=== PATIENT | female | born 1980 | race Hispanic/Latino ===

== ENCOUNTER → 2019-02-06 13:50 | Outpatient (CLI) | payer BC, SELFPAY ==
[2019-02-11 15:39] LABS: HPV APTIMA, High Risk Negative (Negative)
== END ==
PROVIDERS: Visit Provider Obstetrics & Gynecology
DX: Z12.4 Encounter for screening for malignant neoplasm of cervix (principal)
CPT/HCPCS: 87624; 88175; G0145

== ENCOUNTER → 2020-01-08 10:19 | Outpatient (CLI) | payer BC, SELFPAY ==
[2020-01-08 11:29] LABS: EXAGEN MAILED SPECIMEN
[2020-01-08 12:36] LABS: Absolute Lymphocyte Count 1.27 X10^3/uL (0.83-4.51); Absolute Neutrophil Count 2.5 X10^3/uL (2.0-7.7); Basophil# 0.02 X10^3/uL; Basophil% 0.5 % (0-1); Eosinophil# 0.02 X10^3/uL; Eosinophils% 0.5 % (0-5); Hematocrit 42.3 % (37-47); Hemoglobin 13.6 g/dL (12.0-15.0); Lymphocyte # 1.27 X10^3/ul (4.0); Lymphocyte % 30.9 % (19-41); Mean Corp Hgb Conc 32.2 g/dL (32-36); Mean Corpuscular Hgb 29.8 pg (27.0-32.0); Mean Corpuscular Volume 92.8 fL (81-99); Mean Platelet Vol. 10.3 fl (6.2-12.0); Monocyte# 0.28 X10^3/uL; Monocyte% 6.8 % (0-10); NRBC Flagged by Analyzer 0 % (0-5); Neutrophil # 2.51 X10^3/uL (2.7-7.7); Neutrophil % 61.1 % (47-70); Platelet Count 334 K/mm3 (150-450); RBC Distribution Width CV 11.7 % (11.6-14.6); RBC Distribution Width SD 39.7 fl (35.1-43.9); Red Blood Count 4.56 M/mm3 (4.2-5.4); White Blood Count 4.1 K/mm3 (4.4-11.0)
[2020-01-08 12:38] LABS: Color, Urine Yellow (Yellow); Glucose, Dipstick Normal (Normal); Ketone-Dipstick 5 mg/dl (Negative); Leukocyte Esterase-Dipstick Negative /ul (Negative); Nitrite-Dipstick Negative (Negative); Occult Blood-Urine 250 /ul (Negative); Protein-Dipstick Negative (Negative); Specific Gravity, Urine 1.025 (1.002-1.030); Urine Bilirubin Dipstick Negative (Negative); Urine Clarity Sl. Cloudy (Clear); Urine Urobilinogen Normal (Normal)
[2020-01-08 12:46] LABS: Prothrombin Time (Protime)PT. 12.7 SECONDS (11.7-14.9)
[2020-01-08 12:59] LABS: ALB/GLOB Ratio 1.1 RATIO (0.9-2.4); AST(SGOT) 16 U/L (15-37); Alanine Aminotransfer ALT/SGPT 24 U/L (13-56); Albumin, Serum 4.2 g/dL (3.2-5.0); Alkaline Phosphatase 82 U/L (45-117); Anion Gap 5 (5-15); BUN 24 mg/dL (7-18); BUN/Creat Ratio 43.3 RATIO (10-20); Calcium,Total 9.1 mg/dL (8.5-10.1); Chloride 102 mmol/L (98-107); Creatinine, Serum 0.55 mg/dL (0.55-1.02); EST Glomerular Filtration Rate 128 mL/min (>60); Est Glom Filt Rate - Afr Amer 155 mL/min (>60); Globulin 3.8 g/dL (2.2-4.2); Glucose 89 mg/dL (74-106); Potassium 3.7 mmol/L (3.5-5.1); Sodium Level 136 mmol/L (136-145)
[2020-01-08 13:15] LABS: Protein, Urine (Random) 24.7 mg/dL (<11.9); Protein:Creat Ratio 129 mg/g CRE (0-200)
[2020-01-08 13:35] LABS: Hepatitis B Surface Antibody Reactive; Hepatitis B Surface Antigen Non-Reactive (Nonreactive); Hepatitis C Antibody Non-Reactive (Nonreactive)
[2020-01-10 20:07] LABS: Dilute Prothrombin Time (dPT) 39.6 sec (0.0-55.0); Dilute Russell Viper Venom 34.2 sec (0.0-47.0); Hexagonal Phase Phospholipid 9 sec (0-11); PTT-LA 37.8 sec (0.0-51.9); Thrombin Time 17.6 sec (0.0-23.0); dPT Confirm Ratio 1.12 Ratio (0.00-1.40)
[2020-01-10 21:53] LABS: Hepatitis B Core AB IgM Negative (Negative); Interpretation Comment: (.)
== END ==
PROVIDERS: PCP Family Medicine; Referring Provider Internal Medicine Rheumatology; Visit Provider Internal Medicine Rheumatology
DX: M06.4 Inflammatory polyarthropathy (principal); R76.8 Other specified abnormal immunological findings in serum; E03.9 Hypothyroidism, unspecified; E78.5 Hyperlipidemia, unspecified; G90.1 Familial dysautonomia [Riley-Day]; F41.9 Anxiety disorder, unspecified
CPT/HCPCS: 36415; 80053; 81002; 82570; 84156; 85025; 85598; 85610; 86705; 86706; 86803; 87340

== ENCOUNTER → 2020-02-16 | Outpatient (CLI) | payer BC, SELFPAY | END | disposition home or self-care (01) | LOC: LABSPEC 02-19 16:15 | PROVIDERS: PCP Family Medicine; Visit Provider Obstetrics & Gynecology | DX: N76.0 Acute vaginitis (principal) ==

== ENCOUNTER → 2020-04-11 09:12 | Outpatient (CLI) | payer BC, SELFPAY ==
[2020-04-11 10:03] LABS: Absolute Lymphocyte Count 1.21 X10^3/uL (0.83-4.51); Absolute Neutrophil Count 1.2 X10^3/uL (2.0-7.7); Basophil# 0.02 X10^3/uL; Basophil% 0.7 % (0-1); Eosinophil# 0.06 X10^3/uL; Eosinophils% 2.2 % (0-5); Hematocrit 38.9 % (37-47); Hemoglobin 12.3 g/dL (12.0-15.0); Lymphocyte # 1.21 X10^3/ul (4.0); Mean Corp Hgb Conc 31.6 g/dL (32-36); Mean Corpuscular Hgb 29.8 pg (27.0-32.0); Mean Corpuscular Volume 94.2 fL (81-99); Mean Platelet Vol. 10.1 fl (6.2-12.0); Monocyte# 0.27 X10^3/uL; Monocyte% 9.8 % (0-10); NRBC Flagged by Analyzer 0 % (0-5); Neutrophil # 1.18 X10^3/uL (2.7-7.7); Neutrophil % 42.9 % (47-70); Platelet Count 269 K/mm3 (150-450); RBC Distribution Width CV 11.9 % (11.6-14.6); RBC Distribution Width SD 41.9 fl (35.1-43.9); Red Blood Count 4.13 M/mm3 (4.2-5.4); White Blood Count 2.8 K/mm3 (4.4-11.0)
[2020-04-11 10:41] LABS: ALB/GLOB Ratio 1.2 RATIO (0.9-2.4); AST(SGOT) 13 U/L (15-37); Alanine Aminotransfer ALT/SGPT 22 U/L (13-56); Albumin, Serum 3.8 g/dL (3.2-5.0); Alkaline Phosphatase 63 U/L (45-117); Anion Gap 2 (5-15); BUN 18 mg/dL (7-18); BUN/Creat Ratio 30.7 RATIO (10-20); Calcium,Total 8.8 mg/dL (8.5-10.1); Chloride 105 mmol/L (98-107); Creatinine, Serum 0.59 mg/dL (0.55-1.02); EST Glomerular Filtration Rate 119 mL/min (>60); Est Glom Filt Rate - Afr Amer 144 mL/min (>60); Globulin 3.2 g/dL (2.2-4.2); Glucose 79 mg/dL (74-106); Potassium 3.7 mmol/L (3.5-5.1); Sodium Level 141 mmol/L (136-145)
== END ==
PROVIDERS: PCP Family Medicine; Referring Provider Internal Medicine Rheumatology; Visit Provider Internal Medicine Rheumatology
DX: M06.4 Inflammatory polyarthropathy (principal); R76.8 Other specified abnormal immunological findings in serum; E03.9 Hypothyroidism, unspecified; E78.5 Hyperlipidemia, unspecified; G90.1 Familial dysautonomia [Riley-Day]; F41.9 Anxiety disorder, unspecified
CPT/HCPCS: 36415; 80053; 85025

== ENCOUNTER → 2020-05-09 09:01 | Outpatient (CLI) | payer BC, SELFPAY ==
[2020-05-09 09:46] LABS: Absolute Neutrophil Count 1.5 X10^3/uL (2.0-7.7); Basophil# 0.03 X10^3/uL; Basophil% 0.9 % (0-1); Eosinophil# 0.06 X10^3/uL; Eosinophils% 1.9 % (0-5); Hematocrit 38.9 % (37-47); Hemoglobin 12.5 g/dL (12.0-15.0); Lymphocyte % 43.2 % (19-41); Mean Corp Hgb Conc 32.1 g/dL (32-36); Mean Corpuscular Hgb 29.9 pg (27.0-32.0); Mean Corpuscular Volume 93.1 fL (81-99); Mean Platelet Vol. 10.1 fl (6.2-12.0); Monocyte# 0.29 X10^3/uL; NRBC Flagged by Analyzer 0 % (0-5); Neutrophil # 1.46 X10^3/uL (2.7-7.7); Platelet Count 291 K/mm3 (150-450); RBC Distribution Width CV 11.8 % (11.6-14.6); RBC Distribution Width SD 40.7 fl (35.1-43.9); Red Blood Count 4.18 M/mm3 (4.2-5.4); White Blood Count 3.2 K/mm3 (4.4-11.0)
== END ==
PROVIDERS: PCP Family Medicine; Referring Provider Internal Medicine Rheumatology; Visit Provider Internal Medicine Rheumatology
DX: M06.4 Inflammatory polyarthropathy (principal); R76.8 Other specified abnormal immunological findings in serum; E03.9 Hypothyroidism, unspecified; E78.5 Hyperlipidemia, unspecified; G90.1 Familial dysautonomia [Riley-Day]; F41.9 Anxiety disorder, unspecified; Z79.899 Other long term (current) drug therapy
CPT/HCPCS: 36415; 85025

== ENCOUNTER 2020-12-02 05:03 | Emergency (ER) | payer BC, SELFPAY ==
[2020-12-02 05:05] VITALS: BP 120/80; PULSE 132; RESP 22; TEMP 36.4; O2SAT 97; BMI 20.3
--- NOTE | 2020-12-02 05:07 | EX.ED.DYSGE1 ---
HPI History of Present Illness Chief Complaint: Foreign Body Informant: patient and spouse/S.O. Narrative Narrative: Patient was evidently brushing her teeth. Somehow the toothbrush got lodged down her throat. She is more gagging and having discomfort and trouble breathing. This happened within the last probably 45 minutes. Nothing makes it better or worse. She denies any medical problems. [facility] Medical History (Updated 12/02/20 @ 05:[address] Gary Hoover MD) Depression Hypothyroidism Allergy/AdvReac Type Severity Reaction Status Date / Time Unable to Assess Allergy Verified 12/02/20 05:05 Social History Smoking Status: Former smoker ROS ROS ED ROS Narrative Initial review of systems is limited. After removal of the brush she states she felt fine and she has no symptoms at all prior to this. Constitutional Constitutional ED: Denies fever(s) ENT ENT ED: Reports other Details: See history of present illness. Respiratory/Chest Respiratory/Chest: Denies dyspnea Gastrointestinal Gastrointestinal: Denies diarrhea, nausea or vomiting Neurologic Neurologic: Denies weakness Psychiatric Psychiatric: Denies anxiety or depression EXAM Physical Exam Const Vital Signs: 12/02/20 05:05 Temperature 97.5 F L Temperature Source Temporal Pulse Rate 132 H Respiratory Rate 22 H Blood Pressure 120/80 Blood Pressure Mean 93 Pulse Ox 97 Oxygen Delivery Method Room Air Positive well nourished and well developed Constitutional Narrative: Patient comes in with her almost entire hand in her mouth. She is drooling. She is gagging. But she is moving air quite well. I listen to her lungs and they sound clear. General Appearance ED: well developed HEENT HEENT Narrative: It is initially hard to get visualization as she does not want to take her hand out. She then does take her hand and I can see the tail end her handle of a toothbrush. Using a light and Per forceps were able to pull this out without difficulty. There is no blood on the area and there is no bleeding afterwards. She has resolution of symptoms. Neck supple and No no JVD Neck Narrative: No subcu air. Chest Wall inspection of chest normal Resp clear to auscultation bilaterally Auscultation: Negative for rales, rhonchi or wheezes Cardio regular rhythm Rate: tachycardic GI normal to inspection, nondistended, normoactive bowel sounds and non-tender Palpation: soft Neuro oriented x3 Neuro Narrative: Not lethargic or sleepy. Sensorium / Orientation: alert Psych mental status grossly normal Skin no rashes or lesions noted MDM MDM MDM Narrative Medical decision making narrative: I was called emergently to bedside when she came in. We are able to visualize this. I had already asked for Per forceps. The first time I grabbed it it slipped off. We had her remove her hand again we are able to grab the tip firmly and pull it out without difficulty. Symptoms are resolved. Explained to the patient that I would like to watch her for a while to make sure she does not have any issues such as breathing problems, swelling, loss of voice bleeding or other issues. She states she was good and comfortable going. I did convince her to stay for a bit. Patient is asymptomatic. She is comfortable and swallowing well. Voice is normal. Saturations are 99%. She states she had drank wine with her sister. She had a little upset stomach. She was trying to make herself throw up. The finger did not work so she used a toothbrush and went too far. She feels fine now and wants to go. I think that is reasonable. We encouraged avoiding this in the future. Discharge Plan Triage Chief Complaint: Foreign Body ED Provider: Gary Hoover Dx/Rx/DC Orders Clinical Impression: Foreign body, swallowed Instructions: ED Swallowed Foreign Body (Adult) Primary Care Provider: Rodrigo Narayan Referrals: Rodrigo Narayan MD [Primary Care Provider] - 1-2 Days if not improving Disposition Disposition: Home, Self Care
[2020-12-02 05:51] VITALS: BP 103/75; O2SAT 98
== END 2020-12-02 05:52 | disposition home or self-care (01) ==
PROVIDERS: Emergency Provider Emergency Medicine; PCP Family Medicine
DX: T17.298A Other foreign object in pharynx causing other injury, initial encounter (principal); Z87.891 Personal history of nicotine dependence
CPT/HCPCS: 42809; 10120; 99282

== ENCOUNTER → 2021-03-29 | Outpatient (CLI) | payer BC, SELFPAY ==
[2021-04-04 17:42] LABS: HPV APTIMA, High Risk Negative (Negative)
== END | disposition home or self-care (01) ==
LOC: LABSPEC 15:48
PROVIDERS: PCP Family Medicine; Visit Provider Obstetrics & Gynecology
DX: Z12.4 Encounter for screening for malignant neoplasm of cervix (principal)
CPT/HCPCS: 87624; 88175; G0145